=== PATIENT | female | born 1990 | race Two or more races ===

== ENCOUNTER 2016-07-28 21:09 | Emergency (ER) | payer OTHER ==
[~2016-07-28] VITALS: Ht 160 cm; Wt 69.7 kg
[~2016-07-28 21:09] MED LIST: KEFLEX500 MG PO; MOTRIN600 MG PO; PERCOCET 5/31 TABLET PO; TRI-SPRINTEC1 EACH; ULTRAM50 MG PO; ZOFRAN ODT4 MG PO
[2016-07-28 21:50] LABS: HEMATOCRIT 45.5 % (36.0-46.0); MCH 28.5 PG (29.0-34.0); MCHC 33.2 G/DL (30.0-36.0); MCV 85.8 FL (83-99); MEAN PLAT.VOLUME 10.5 uM^3 (9.5-12.4); PLATELET COUNT 334 K/uL (156-360); RBC DIS.WIDTH-CV 13.2 % (11.8-14.6); RBC DIS.WIDTH-SD 41.6 % (39-53); WHITE BLOOD COUNT 8.5 K/uL (4.1-10.2)
[2016-07-28 21:58] LABS: CHLORIDE 103 mEq/L (99-109); POTASSIUM 4.1 mEq/L (3.7-5.4); SODIUM 140 mEq/L (136-147)
[2016-07-28 22:00] LABS: GLUCOSE 102 mg/dL (70-99)
[2016-07-28 22:01] LABS: ANION GAP 11 MEQ/L (2-14)
[2016-07-28 22:02] LABS: TOTAL BILIRUBIN 0.6 mg/dL (0.0-1.0)
[2016-07-28 22:03] LABS: ALKALINE PHOSPHATASE 74 IU/L (3-129)
[2016-07-28 22:04] LABS: GFR ESTIMATE (CALCULATED) > 59 mL/min/
[2016-07-28 22:05] LABS: UREA NITROGEN (BUN) 8 mg/dL (9-23)
[2016-07-28 22:12] LABS: ADD MIUA? YES; BILIRUBIN NEGATIVE; BLOOD NEGATIVE; COLOR YELLOW ((YELLOW)); GLUCOSE (STRIP) NEGATIVE; KETONES 80; LEUKOCYTES TRACE; NITRITE NEGATIVE; PROTEIN (STRIP) 30; SPECIFIC GRAVITY 1.024 (1.000-1.030); UROBILINOGEN 0.2 MG/DL (0.2-1.0)
[2016-07-28 22:12] LABS: QUANTITATIVE HCG < 4.0 MIU/ML
[2016-07-28 22:22] LABS: BACTERIA RARE /HPF; EPITHELIAL CELLS 1+ /HPF; MUCUS 3+ /LPF; RED BLOOD CELLS 0-5 /HPF (0-5); WHITE BLOOD CELLS 0-5 /HPF (0-5)
[2016-07-28 23:06] VITALS: BP 103/76
== END 2016-07-28 23:11 | disposition home or self-care (01) ==
LOC: EME 21:09
PROVIDERS: Nurse Practitioner Family
DX: T50.5X5A Adverse effect of appetite depressants, initial encounter (principal); G43.909 Migraine, unspecified, not intractable, without status migrainosus; S91.311A Laceration without foreign body, right foot, initial encounter; W45.8XXA Other foreign body or object entering through skin, initial encounter
CPT/HCPCS: 73630; 80053; 81003; 84702; 85027; 99281; 99284; J1885

== ENCOUNTER 2016-09-03 22:06 | Emergency (ER) | payer OTHER ==
[~2016-09-03] VITALS: Ht 160 cm; Wt 70.3 kg
[2016-09-04] MEDS ORDERED: FIORICET,ESG1 TABLET PO (00:09)
[2016-09-04] MEDS ORDERED: REGLAN10 MG PO (00:09)
[2016-09-04 00:42] VITALS: BP 107/72
== END 2016-09-04 00:44 | disposition home or self-care (01) ==
LOC: EME 22:06
DX: G43.909 Migraine, unspecified, not intractable, without status migrainosus (principal); Z88.8 Allergy status to other drugs, medicaments and biological substances
CPT/HCPCS: 99281; 99284; J1200; J1885; J2765; J7030

== ENCOUNTER 2016-09-18 15:09 | Emergency (ER) | payer OTHER ==
[~2016-09-18] VITALS: Ht 160 cm; Wt 71.0 kg
[~2016-09-18 15:09] MED LIST changes: +FIORICET,ESG1 TABLET PO; +REGLAN10 MG PO
[2016-09-18 16:23] LABS: ADD MIUA? NO; BILIRUBIN NEGATIVE; BLOOD NEGATIVE; COLOR YELLOW ((YELLOW)); GLUCOSE (STRIP) NEGATIVE; KETONES NEGATIVE; LEUKOCYTES NEGATIVE; NITRITE NEGATIVE; PROTEIN (STRIP) NEGATIVE; SPECIFIC GRAVITY 1.012 (1.000-1.030); UCUL ADDED? NO; UROBILINOGEN 0.2 MG/DL (0.2-1.0)
[2016-09-18 16:30] LABS: HEMATOCRIT 42.6 % (36.0-46.0); MCH 28.9 PG (29.0-34.0); MCHC 33.3 G/DL (30.0-36.0); MCV 86.6 FL (83-99); MEAN PLAT.VOLUME 10.9 uM^3 (9.5-12.4); PLATELET COUNT 313 K/uL (156-360); RBC DIS.WIDTH-CV 12.6 % (11.8-14.6); RBC DIS.WIDTH-SD 39.8 % (39-53); RED BLOOD COUNT 4.92 M/uL (3.80-5.20); WHITE BLOOD COUNT 11.2 K/uL (4.1-10.2)
[2016-09-18 16:40] LABS: CHLORIDE 103 mEq/L (99-109); POTASSIUM 4.2 mEq/L (3.7-5.4); SODIUM 137 mEq/L (136-147)
[2016-09-18 16:42] LABS: GLUCOSE 87 mg/dL (70-99)
[2016-09-18 16:44] LABS: ANION GAP 11 MEQ/L (2-14); TOTAL BILIRUBIN 0.3 mg/dL (0.0-1.0)
[2016-09-18 16:46] LABS: ALKALINE PHOSPHATASE 61 IU/L (3-129); GFR ESTIMATE (CALCULATED) > 59 mL/min/
[2016-09-18 16:47] LABS: UREA NITROGEN (BUN) 9 mg/dL (9-23)
[2016-09-18 16:50] LABS: LIPASE 20 U/L (1.0-51.0)
[2016-09-18 16:57] LABS: QUANTITATIVE HCG 2043.7 MIU/ML
[2016-09-18] MEDS ORDERED: ZOFRAN4 MG PO (19:29)
[2016-09-18 19:40] VITALS: BP 118/76
== END 2016-09-18 19:40 | disposition home or self-care (01) ==
LOC: EME 15:09
PROVIDERS: Physician Assistant
DX: O26.891 Other specified pregnancy related conditions, first trimester (principal); R10.2 Pelvic and perineal pain; O21.9 Vomiting of pregnancy, unspecified; R19.7 Diarrhea, unspecified; R10.31 Right lower quadrant pain; M54.9 Dorsalgia, unspecified; R82.99 Other abnormal findings in urine; Z87.442 Personal history of urinary calculi; Z3A.01 Less than 8 weeks gestation of pregnancy
CPT/HCPCS: 76801; 80053; 81003; 83690; 84702; 85027; 99281; 99284

== ENCOUNTER 2017-02-12 03:00 | Emergency (ER) | payer OTHER ==
[~2017-02-12] VITALS: Ht 160 cm; Wt 72.1 kg
[~2017-02-12 03:00] MED LIST changes: +ZOFRAN4 MG PO
[2017-02-12 04:39] VITALS: BP 115/75
== END 2017-02-12 04:40 | disposition home or self-care (01) ==
LOC: EXP 03:00 → EME 03:00 → EXP 04:40
DX: R51 Headache (principal); Z86.69 Personal history of other diseases of the nervous system and sense organs
CPT/HCPCS: 99281; 99284; J1200; J1885; J2765; J7030

== ENCOUNTER 2017-04-23 08:41 | Emergency (ER) | payer OTHER ==
[~2017-04-23] VITALS: Ht 160 cm; Wt 72.7 kg
[~2017-04-23 08:41] MED LIST changes: +MOTRIN800 MG PO
[2017-04-23 09:26] LABS: ADD MIUA? YES; BILIRUBIN NEGATIVE; BLOOD NEGATIVE; COLOR YELLOW ((YELLOW)); GLUCOSE (STRIP) NEGATIVE; KETONES NEGATIVE; LEUKOCYTES NEGATIVE; NITRITE NEGATIVE; PROTEIN (STRIP) 30; SPECIFIC GRAVITY 1.025 (1.000-1.030); UROBILINOGEN 0.2 MG/DL (0.2-1.0)
[2017-04-23 09:31] LABS: BACTERIA RARE /HPF; EPITHELIAL CELLS RARE /HPF; MUCUS 2+ /LPF; WHITE BLOOD CELLS 0-5 /HPF (0-5)
[2017-04-23 09:41] LABS: EOSINOPHIL (%) 0.4 % (0-5); HEMATOCRIT 41.7 % (36.0-46.0); IMMATURE GRANULOCYTE (%) 0.2 % (0.0-0.7); LYMPHOCYTE COUNT 2.1 K/uL (1.0-2.8); MCH 28.8 PG (29.0-34.0); MCHC 33.1 G/DL (30.0-36.0); MCV 86.9 FL (83-99); MEAN PLAT.VOLUME 10.2 uM^3 (9.5-12.4); MONOCYTE COUNT 0.7 K/uL (0-0.8); NEUTROPHIL (%) 73.7 % (45-76); PLATELET COUNT 317 K/uL (156-360); RBC DIS.WIDTH-CV 12.8 % (11.8-14.6); WHITE BLOOD COUNT 10.9 K/uL (4.1-10.2)
[2017-04-23 09:51] LABS: CHLORIDE 104 mEq/L (99-109); SODIUM 134 mEq/L (136-147)
[2017-04-23 09:53] LABS: GLUCOSE 93 mg/dL (70-99)
[2017-04-23 09:54] LABS: ANION GAP 9 MEQ/L (2-14)
[2017-04-23 09:57] LABS: GFR ESTIMATE (CALCULATED) > 59 mL/min/
[2017-04-23 09:58] LABS: UREA NITROGEN (BUN) 7 mg/dL (9-23)
[2017-04-23 10:22] LABS: QUANTITATIVE HCG 86597.3 MIU/ML
[2017-04-23] MEDS ORDERED: ZOFRAN4 MG PO (11:28)
[2017-04-23 11:33] VITALS: BP 101/62
[2017-04-24] MEDS ORDERED: ZOFRAN ODT4 MG PO (16:34)
[2017-04-24] MEDS ORDERED: PROMETHAZINE HC25 M1 PO (16:34)
== END 2017-04-23 11:44 | disposition home or self-care (01) ==
LOC: EME 08:41
PROVIDERS: Emergency Medicine
DX: O21.9 Vomiting of pregnancy, unspecified (principal); Z3A.01 Less than 8 weeks gestation of pregnancy
CPT/HCPCS: 80048; 81003; 84702; 85025; 99281; 99285; J1100; J2060; J2405; J7030

== ENCOUNTER 2017-04-24 13:18 | Emergency (ER) | payer OTHER ==
[~2017-04-24] VITALS: Ht 160 cm; Wt 73.3 kg
[2017-04-24 14:11] LABS: HEMATOCRIT 42.3 % (36.0-46.0); MCH 28.7 PG (29.0-34.0); MCHC 32.9 G/DL (30.0-36.0); MCV 87.4 FL (83-99); MEAN PLAT.VOLUME 10.6 uM^3 (9.5-12.4); PLATELET COUNT 330 K/uL (156-360); RBC DIS.WIDTH-CV 12.9 % (11.8-14.6); RBC DIS.WIDTH-SD 41.7 % (39-53); RED BLOOD COUNT 4.84 M/uL (3.80-5.20); WHITE BLOOD COUNT 17.5 K/uL (4.1-10.2)
[2017-04-24 14:21] LABS: ADD MIUA? YES; BILIRUBIN NEGATIVE; BLOOD NEGATIVE; COLOR YELLOW ((YELLOW)); GLUCOSE (STRIP) NEGATIVE; KETONES NEGATIVE; LEUKOCYTES NEGATIVE; NITRITE NEGATIVE; PROTEIN (STRIP) NEGATIVE; SPECIFIC GRAVITY 1.021 (1.000-1.030); UROBILINOGEN 0.2 MG/DL (0.2-1.0)
[2017-04-24 14:21] LABS: CHLORIDE 103 mEq/L (99-109); POTASSIUM 3.9 mEq/L (3.7-5.4); SODIUM 136 mEq/L (136-147)
[2017-04-24 14:23] LABS: GLUCOSE 96 mg/dL (70-99)
[2017-04-24 14:24] LABS: ANION GAP 10 MEQ/L (2-14)
[2017-04-24 14:25] LABS: TOTAL BILIRUBIN 0.5 mg/dL (0.0-1.0)
[2017-04-24 14:26] LABS: ALKALINE PHOSPHATASE 58 IU/L (3-129)
[2017-04-24 14:27] LABS: GFR ESTIMATE (CALCULATED) > 59 mL/min/
[2017-04-24 14:28] LABS: UREA NITROGEN (BUN) 8 mg/dL (9-23)
[2017-04-24 14:32] LABS: BACTERIA RARE /HPF; EPITHELIAL CELLS 1+ /HPF; MUCUS 3+ /LPF; UCUL ADDED? NO; WHITE BLOOD CELLS 0-5 /HPF (0-5)
[2017-04-24 14:56] LABS: QUANTITATIVE HCG 116763.2 MIU/ML
[2017-04-24] MEDS ORDERED: PROMETHAZINE HC25 M1 PO (16:34)
[2017-04-24] MEDS ORDERED: ZOFRAN ODT4 MG PO (16:34)
[2017-04-24 16:46] VITALS: BP 105/67
== END 2017-04-24 16:47 | disposition home or self-care (01) ==
LOC: EME 13:18
DX: O21.9 Vomiting of pregnancy, unspecified (principal); O99.281 Endocrine, nutritional and metabolic diseases complicating pregnancy, first trimester; E86.0 Dehydration; M54.9 Dorsalgia, unspecified; K59.00 Constipation, unspecified; Z3A.01 Less than 8 weeks gestation of pregnancy
CPT/HCPCS: 76801; 80053; 81003; 84702; 85027; 99281; 99284; J2405; J7030

== ENCOUNTER 2017-10-14 18:32 | Outpatient (CLI) | payer OTHER ==
[~2017-10-14] VITALS: Ht 160.7 cm; Wt 81.4 kg
[~2017-10-14 18:32] MED LIST changes: +PROMETHAZINE HC25 M1 PO
[2017-10-14 19:08] VITALS: BP 124/81
[2017-10-14] MEDS ORDERED: PRENA1 TRUE CO1 EACH PO (19:40)
[2017-10-14] MEDS ORDERED: TYLENOL ARTHRI650 MG PO (19:41)
[2017-10-14] MEDS ORDERED: TUMS X-STR300 MG PO (19:42)
== END 2017-10-14 20:05 | disposition home or self-care (01) ==
LOC: LDRP-OP 18:32 → 2WEST 18:34 → LDRP-OP 01-17 05:59
DX: O36.8130 Decreased fetal movements, third trimester, not applicable or unspecified (principal); O34.219 Maternal care for unspecified type scar from previous cesarean delivery; O99.343 Other mental disorders complicating pregnancy, third trimester; F32.9 Major depressive disorder, single episode, unspecified; F41.9 Anxiety disorder, unspecified; Z82.49 Family history of ischemic heart disease and other diseases of the circulatory system; Z82.5 Family history of asthma and other chronic lower respiratory diseases; Z3A.30 30 weeks gestation of pregnancy
CPT/HCPCS: 59025; G0378

== ENCOUNTER 2017-11-07 17:40 | Outpatient (CLI) | payer OTHER ==
[~2017-11-07] VITALS: Ht 160 cm; Wt 82.0 kg
[~2017-11-07 17:40] MED LIST changes: +PRENA1 TRUE CO1 EACH PO; +TUMS X-STR300 MG PO; +TYLENOL ARTHRI650 MG PO
[2017-11-07 18:04] VITALS: BP 137/90
[2017-11-07 18:21] VITALS: BP 134/86
[2017-11-07 18:34] LABS: BASOPHIL (%) 0.2 % (0-1); EOSINOPHIL (%) 0.8 % (0-5); EOSINOPHIL COUNT 0.1 K/uL (0-0.3); HEMATOCRIT 35.7 % (36.0-46.0); HEMOGLOBIN 11.5 G/DL (11.9-15.5); IMMATURE GRANULOCYTE (%) 0.3 % (0.0-0.7); LYMPHOCYTE (%) 22.4 % (15-42); LYMPHOCYTE COUNT 2.3 K/uL (1.0-2.8); MCH 26.4 PG (29.0-34.0); MCHC 32.2 G/DL (30.0-36.0); MCV 82.1 FL (83-99); MONOCYTE (%) 10.5 % (3-12); MONOCYTE COUNT 1.1 K/uL (0-0.8); NEUTROPHIL (%) 65.8 % (45-76); NEUTROPHIL COUNT 6.8 K/uL (1.8-6.4); PLATELET COUNT 293 K/uL (156-360); RBC DIS.WIDTH-CV 13.7 % (11.8-14.6); RBC DIS.WIDTH-SD 40.6 % (39-53); RED BLOOD COUNT 4.35 M/uL (3.80-5.20); WHITE BLOOD COUNT 10.3 K/uL (4.1-10.2)
[2017-11-07 18:36] VITALS: BP 144/92
[2017-11-07 18:51] VITALS: BP 142/95
[2017-11-07 18:59] LABS: ALBUMIN 2.8 G/DL (3.2-4.8); ALKALINE PHOSPHATASE 170 IU/L (3-129); ALT (GPT) 8 IU/L (3-49); AST (GOT) 13 IU/L (2-34); CHLORIDE 105 MEQ/L (99-109); CREATININE 0.6 MG/DL (0.6-1.3); GFR ESTIMATE (CALCULATED) > 59 mL/min/; GLUCOSE 108 mg/dL (70-99); POTASSIUM 4.3 MEQ/L (3.7-5.4); SODIUM 135 MEQ/L (136-147); TOTAL BILIRUBIN 0.2 MG/DL (0.0-1.0); TOTAL PROTEIN 5.7 G/DL (6.4-8.3); UREA NITROGEN (BUN) 6 mg/dL (9-23)
[2017-11-07 19:08] LABS: UR CREATININE CONCENTRATION 177.7 MG/DL
[2017-11-07] MEDS ORDERED: MACROBID100 MG PO (19:11)
== END 2017-11-07 19:15 | disposition home or self-care (01) ==
LOC: LDRP-OP 17:40 → 2WEST 17:42 → LDRP-OP 01-17 21:15
PROVIDERS: Midwife
DX: O26.893 Other specified pregnancy related conditions, third trimester (principal); R03.0 Elevated blood-pressure reading, without diagnosis of hypertension; R31.9 Hematuria, unspecified; Z87.442 Personal history of urinary calculi; Z3A.34 34 weeks gestation of pregnancy
CPT/HCPCS: 59025; 80053; 82570; 84156; 85025; G0378

== ENCOUNTER 2017-11-10 05:19 | Outpatient (CLI) | payer OTHER ==
[~2017-11-10] VITALS: Ht 160 cm; Wt 82.1 kg
[~2017-11-10 05:19] MED LIST changes: +MACROBID100 MG PO
[2017-11-10 05:30] VITALS: BP 138/92
[2017-11-10 05:47] VITALS: BP 137/89
[2017-11-10 06:54] LABS: BASOPHIL (%) 0.2 % (0-1); EOSINOPHIL (%) 0.3 % (0-5); HEMATOCRIT 36.7 % (36.0-46.0); HEMOGLOBIN 11.8 G/DL (11.9-15.5); IMMATURE GRANULOCYTE (%) 0.5 % (0.0-0.7); LYMPHOCYTE (%) 13.4 % (15-42); LYMPHOCYTE COUNT 1.8 K/uL (1.0-2.8); MCH 26.2 PG (29.0-34.0); MCHC 32.2 G/DL (30.0-36.0); MCV 81.6 FL (83-99); MONOCYTE (%) 5.7 % (3-12); MONOCYTE COUNT 0.8 K/uL (0-0.8); NEUTROPHIL (%) 79.9 % (45-76); NEUTROPHIL COUNT 10.5 K/uL (1.8-6.4); PLATELET COUNT 292 K/uL (156-360); RBC DIS.WIDTH-SD 41.1 % (39-53); WHITE BLOOD COUNT 13.2 K/uL (4.1-10.2)
[2017-11-10 07:19] LABS: ALBUMIN 2.8 G/DL (3.2-4.8); ALKALINE PHOSPHATASE 172 IU/L (3-129); ALT (GPT) 8 IU/L (3-49); AST (GOT) 14 IU/L (2-34); CHLORIDE 106 MEQ/L (99-109); CREATININE 0.7 MG/DL (0.6-1.3); GFR ESTIMATE (CALCULATED) > 59 mL/min/; GLUCOSE 87 mg/dL (70-99); SODIUM 136 MEQ/L (136-147); TOTAL BILIRUBIN 0.2 MG/DL (0.0-1.0); TOTAL PROTEIN 5.9 G/DL (6.4-8.3); UREA NITROGEN (BUN) 10 mg/dL (9-23)
[2017-11-10 09:03] LABS: APPEARANCE CLOUDY ((CLEAR)); BILIRUBIN NEGATIVE; BLOOD LARGE; COLOR AMBER ((YELLOW)); GLUCOSE (STRIP) NEGATIVE; KETONES NEGATIVE; LEUKOCYTES NEGATIVE; NITRITE NEGATIVE; PROTEIN (STRIP) 100; SPECIFIC GRAVITY 1.024 (1.000-1.030); UROBILINOGEN 0.2 MG/DL (0.2-1.0)
[2017-11-10 09:50] LABS: UR CREATININE CONCENTRATION 267.5 MG/DL
[2017-11-10 10:12] VITALS: BP 139/90
[2017-11-10 10:13] LABS: RED BLOOD CELLS TNTC /HPF (0-5); UCUL ADDED? YES
[2017-11-10] MEDS ORDERED: PERCOCET 5/31 TABLET PO (11:42)
== END 2017-11-10 12:02 | disposition home or self-care (01) ==
LOC: LDRP-OP 05:19 → 2WEST 05:20 → LDRP-OP 01-17 20:34
PROVIDERS: Midwife
DX: O26.833 Pregnancy related renal disease, third trimester (principal); N05.9 Unspecified nephritic syndrome with unspecified morphologic changes; Z3A.34 34 weeks gestation of pregnancy; R31.9 Hematuria, unspecified; R11.10 Vomiting, unspecified
CPT/HCPCS: 59025; 76770; 80053; 81003; 82570; 84156; 85025; 87086; G0378

== ENCOUNTER 2017-11-21 12:15 | Inpatient (IN) | payer OTHER ==
[2017-11-21] VITALS (12 sets, daily range): BP systolic 0–184; BP diastolic 0–107
[~2017-11-21] VITALS: Ht 160 cm; Wt 83.4 kg
[2017-11-21 13:21] LABS: BASOPHIL (%) 0.3 % (0-1); EOSINOPHIL (%) 0.7 % (0-5); EOSINOPHIL COUNT 0.1 K/uL (0-0.3); HEMATOCRIT 36.4 % (36.0-46.0); IMMATURE GRANULOCYTE (%) 0.3 % (0.0-0.7); LYMPHOCYTE (%) 19.7 % (15-42); MCH 26.9 PG (29.0-34.0); MCV 81.6 FL (83-99); MONOCYTE (%) 8.6 % (3-12); MONOCYTE COUNT 0.9 K/uL (0-0.8); NEUTROPHIL (%) 70.4 % (45-76); NEUTROPHIL COUNT 7.3 K/uL (1.8-6.4); PLATELET COUNT 269 K/uL (156-360); RBC DIS.WIDTH-CV 14.6 % (11.8-14.6); RBC DIS.WIDTH-SD 42.5 % (39-53); RED BLOOD COUNT 4.46 M/uL (3.80-5.20); WHITE BLOOD COUNT 10.3 K/uL (4.1-10.2)
[2017-11-21 13:50] LABS: ALBUMIN 2.7 G/DL (3.2-4.8); ALKALINE PHOSPHATASE 168 IU/L (3-129); ALT (GPT) 9 IU/L (3-49); AST (GOT) 14 IU/L (2-34); CHLORIDE 106 MEQ/L (99-109); CREATININE 0.6 MG/DL (0.6-1.3); GFR ESTIMATE (CALCULATED) > 59 mL/min/; GLUCOSE 96 mg/dL (70-99); POTASSIUM 4.5 MEQ/L (3.7-5.4); SODIUM 135 MEQ/L (136-147); TOTAL BILIRUBIN 0.2 MG/DL (0.0-1.0); TOTAL PROTEIN 5.1 G/DL (6.4-8.3); UREA NITROGEN (BUN) 10 mg/dL (9-23)
[2017-11-21 15:54] LABS: AMPHETAMINE NEGATIVE (500 ng/mL); BENZODIAZEPINES NEGATIVE (150 ng/mL); COCAINE NEGATIVE (150 ng/mL); METHAMPHETAMINE NEGATIVE (500 ng/mL); OPIATES (MORPHINE) NEGATIVE (100 ng/mL); PHENCYCLIDINE NEGATIVE (25 ng/mL); THC CANNABINOIDS NEGATIVE (50 ng/mL); TRICYCLIC ANTIDEPRESSANTS NEGATIVE (300 ng/mL)
[2017-11-21 15:55] LABS: BARBITURATES NEGATIVE (200 ng/mL); BUPRENORPHINE NEGATIVE (10 ng/mL); METHADONE NEGATIVE (200 ng/mL); OXYCODONE NEGATIVE (100 ng/mL); PROPOXYPHENE NEGATIVE (300 ng/mL)
[2017-11-21] MEDS ORDERED: IBUPROFEN800 MG PO (16:04)
[2017-11-21] MEDS ORDERED: ENDOCET 5-3251 EACH PO (16:04)
[2017-11-22] VITALS (18 sets, daily range): BP systolic 113–163; BP diastolic 71–93
[2017-11-22 06:02] LABS: BASOPHIL (%) 0.3 % (0-1); EOSINOPHIL (%) 0.3 % (0-5); HEMATOCRIT 35.2 % (36.0-46.0); HEMOGLOBIN 11.3 G/DL (11.9-15.5); IMMATURE GRANULOCYTE (%) 0.5 % (0.0-0.7); LYMPHOCYTE (%) 15.2 % (15-42); LYMPHOCYTE COUNT 2.3 K/uL (1.0-2.8); MCH 26.2 PG (29.0-34.0); MCHC 32.1 G/DL (30.0-36.0); MCV 81.7 FL (83-99); MONOCYTE (%) 7.1 % (3-12); MONOCYTE COUNT 1.1 K/uL (0-0.8); NEUTROPHIL (%) 76.6 % (45-76); NEUTROPHIL COUNT 11.7 K/uL (1.8-6.4); PLATELET COUNT 260 K/uL (156-360); RBC DIS.WIDTH-CV 14.5 % (11.8-14.6); RBC DIS.WIDTH-SD 42.4 % (39-53); RED BLOOD COUNT 4.31 M/uL (3.80-5.20); WHITE BLOOD COUNT 15.3 K/uL (4.1-10.2)
[2017-11-23] VITALS (7 sets, daily range): BP systolic 122–144; BP diastolic 83–94
[2017-11-23 06:19] LABS: BASOPHIL (%) 0.2 % (0-1); EOSINOPHIL COUNT 0.1 K/uL (0-0.3); HEMATOCRIT 32.1 % (36.0-46.0); HEMOGLOBIN 10.3 G/DL (11.9-15.5); IMMATURE GRANULOCYTE (%) 0.5 % (0.0-0.7); LYMPHOCYTE (%) 19.5 % (15-42); LYMPHOCYTE COUNT 2.5 K/uL (1.0-2.8); MCH 26.3 PG (29.0-34.0); MCHC 32.1 G/DL (30.0-36.0); MCV 81.9 FL (83-99); MONOCYTE COUNT 1.2 K/uL (0-0.8); NEUTROPHIL (%) 69.8 % (45-76); PLATELET COUNT 234 K/uL (156-360); RBC DIS.WIDTH-CV 15.1 % (11.8-14.6); RBC DIS.WIDTH-SD 44.2 % (39-53); RED BLOOD COUNT 3.92 M/uL (3.80-5.20); WHITE BLOOD COUNT 12.9 K/uL (4.1-10.2)
[2017-11-23 06:41] LABS: ALBUMIN 2.4 G/DL (3.2-4.8); ALKALINE PHOSPHATASE 132 IU/L (3-129); ALT (GPT) 7 IU/L (3-49); AST (GOT) 11 IU/L (2-34); CHLORIDE 107 MEQ/L (99-109); CREATININE 0.5 MG/DL (0.6-1.3); GFR ESTIMATE (CALCULATED) > 59 mL/min/; GLUCOSE 76 mg/dL (70-99); POTASSIUM 4.2 MEQ/L (3.7-5.4); SODIUM 138 MEQ/L (136-147); TOTAL BILIRUBIN 0.2 MG/DL (0.0-1.0); TOTAL PROTEIN 4.9 G/DL (6.4-8.3); UREA NITROGEN (BUN) 6 mg/dL (9-23)
[2017-11-24 03:28] VITALS: BP 128/80
[2017-11-24 08:25] VITALS: BP 138/90
[2017-11-24 11:52] VITALS: BP 157/89
[2017-11-24 15:21] VITALS: BP 136/83
[2017-11-24 18:58] VITALS: BP 139/88
[2017-11-24 23:13] VITALS: BP 156/98
[2017-11-25 02:37] VITALS: BP 131/83
[2017-11-25 07:57] VITALS: BP 142/91
[2017-11-25 11:16] VITALS: BP 142/84
[2017-11-25] MEDS ORDERED: PROCARDIA XL60 MG PO (14:35)
== END 2017-11-25 18:10 | disposition home or self-care (01) | DRG 765 ==
LOC: LDRP-OP 12:15 → 2WEST 12:16 → LDRP-OP 01-17 12:06
PROVIDERS: Nurse Practitioner; Obstetrics & Gynecology; Obstetrics & Gynecology Gynecology
PROC: 10D00Z1 Extraction of Products of Conception, Low, Open Approach (ICD-10-PCS; principal; 2017-11-21)
DX: O34.211 Maternal care for low transverse scar from previous cesarean delivery (principal); O32.1XX0 Maternal care for breech presentation, not applicable or unspecified; O14.14 Severe pre-eclampsia complicating childbirth; O36.5930 Maternal care for other known or suspected poor fetal growth, third trimester, not applicable or unspecified; O43.193 Other malformation of placenta, third trimester; O99.354 Diseases of the nervous system complicating childbirth; G43.909 Migraine, unspecified, not intractable, without status migrainosus; O99.344 Other mental disorders complicating childbirth; F41.9 Anxiety disorder, unspecified; F32.9 Major depressive disorder, single episode, unspecified; Z3A.36 36 weeks gestation of pregnancy; Z37.0 Single live birth
CPT/HCPCS: 80053; 83735; 85025; 86850; 86900; 86901; 88307; J0690; J2274; J2405; J2765; J3475; J7120